=== PATIENT | male | born 1960 | race Two or more races ===

== ENCOUNTER → 2018-12-18 09:04 | Outpatient (CLI) | payer OTHER | END | disposition home or self-care (01) | LOC: D.HCCARDIO 09:00 | PROVIDERS: ATTEND Internal Medicine Cardiovascular Disease | DX: R06.09 Other forms of dyspnea (principal) ==

== ENCOUNTER 2019-01-04 06:41 | Outpatient (CLI) | payer OTHER ==
[~2019-01-04] VITALS: Ht 170.2 cm; Wt 145.9 kg
--- NOTE | ~2019-01-04 | HEMODYNAMI ---
PATIENT:MILDRED ALY MEDICAL RECORD: [id number] : 64 LOCATION:[facility] ADMISSION DATE: 01/04/19 Generatedon:01/04/201910:02 Patient name: MILDRED ALY Patient #: [id number] SSN: : 1960 Date of study: 01/04/2019 Page: Of Hemodynamic Procedure Report Patient Data Patient Demographics Procedure consent was obtained First Name: MILDRED Gender: Male Last Name: SHEEBA : 1960 Patient #: [id number] Age: 58 year(s) Race: Other Additional ID: [id number] Contact details Address: [address] [place] [address] State: [place] City: [facility] Zip code: [address] Admission Admission Data Admission Date: 01/04/2019 Admission Time: 6:41 Lab Results Lab Result Date: 01/04/2019 Lab Result Time: 0:00 Biochemistry Name Units Result Min Max BUN mg/dl 9 --(*---)-- 7 18 Creatinine mg/dl 0.8 --(-*--)-- 0.6 1.3 CBC Name Units Result Min Max Hemoglobin g/dl 17.3 --(---*)-- 13.5 17.5 Procedure Procedure Types Cath Procedure Diagnostic Procedure [facility] w/Coronaries Procedure Description Procedure Date Procedure Date: 01/04/2019 Procedure Start Time: 9:46 Procedure End Time: 10:01 Procedure Staff Name Function You Jackson MD Performing Physician Mimi Godwin RT Monitor Omar Trujillo RT Scrub Trina Fuentes RN Nurse Procedure Data Cath Procedure Fluoroscopy Diagnostic fluoroscopy Total fluoroscopy Time: 3.1 time: 3.1 min min Diagnostic fluoroscopy Total fluoroscopy dose: 956 dose: 956 mGy mGy Contrast Material Contrast Material Type Amount (ml) Isovue 300 77 Entry Location Entry Primary Successful Side Size Upsize Upsize Entry Closure Succes sful Closure Location (Fr) 1 (Fr) 2 (Fr) Remarks Device Remarks Femoral Right 5 Fr Exoseal artery Estimated blood loss: 5 ml Diagnostic catheters Device Type Used For End Catheter Placement MULTIPACK JL 4.0 5Fr Left Coronary catheter Angiography MULTIPACK 3DRC 5Fr Right Coronary catheter Angiography MULTIPACK Pigtail 5 Fr LV Angiography catheter Procedure Complications No complications Procedure Medications Medication Administration Route Dosage 0.9% NaCl I.V. 100 ml/hr Oxygen etCO2 Nasal cannula 2 l/min Lidocaine 2% added to field 20 Heparin Flush Bag added to field 2 bags (1000units/500ml NS) Versed I.V. 2 mg Fentanyl I.V. 50 mcg Oxygen NRB 15 l/min Hemodynamics Rest HGB: 17.3 (g/dl) Heart Rate: 55 (bpm) Pressure Samples Time Site Value (mmHg) Purpose Heart Use Rate(bpm) 9:57 LV 156/32,72 Snapshot 78 Gradients Valve Time Site Site Mean SEP/DFP Peak To Heart Use 1 2 (mmHg) (sec/min) Peak Rate (mmHg) (bpm) Aortic 9:58 LV AO 87 Snapshots Pre Cath Intra NCS Post Cath Vital Signs Time Heart Resp SPO2 etCO2 NIBP (mmHg) Rhythm Pain Sedation Rate (ipm) (%) (mmHg) Status Level (bpm) 9:32:02 72 27 90 47 169/106(130) NSR 0 (11) 10(A) , No pain 9:36:32 69 20 94 46.6 168/107(137) NSR 0 (11) 10(A) , No pain 9:41:03 74 30 90 24 146/100(118) NSR 0 (11) 9(A) , No pain 9:46:28 69 24 91 39.1 155/100(130) NSR 0 (11) 9(A) , No pain 9:50:57 69 20 98 45.8 172/104(124) NSR 0 (11) 9(A) , No pain 9:56:53 76 24 98 43.6 183/101(131) NSR 0 (11) 9(A) , No pain 10:01:30 76 24 98 46.6 184/105(138) NSR 0 (11) 10(A) , No pain Medications Time Medication Route Dose Verified Delivered Reason Notes Effe ctiveness by by 9:31:12 0.9% NaCl I.V. 100 You Trina used for ml/hr Manuel Fuentes company doctor 9:31:19 Oxygen etCO2 2 You Trina used for Nasal l/min Manuel Fuentes procedure cannula RN 9:31:24 Lidocaine 2% added 20ml You You for local to vial Manuel Jackson MD anesthetic field 9:31:29 Heparin Flush added 2 You You used for Bag to bags Manuel Jackson MD procedure (1000units/500ml field NS) 9:37:02 Versed I.V. 2 mg You Trina for Manuel Fuentes sedation RN 9:37:07 Fentanyl I.V. 50 You Trina for mcg Manuel Fuentes sedation RN 9:49:37 Oxygen NRB 15 You Trina used for l/min Manuel Fuentes company doctor Procedure Log Time Note 8:54:53 Informed consent obtained and on chart 8:59:49 Lab Result : Hemoglobin 17.3 g/dl 8:59:49 Lab Result : Creatinine 0.8 mg/dl 8:59:49 Lab Result : BUN 9 mg/dl 9:28:29 Diagnostic Cath status Elective 9:28:30 Mimi Godwin RT(R) sent for patient. Start room use. 9:28:32 Time tracking: Regular hours (M-F 7:00 - 5:00) 9:28:37 Plan of Care:Hemodynamics will remain stable., Cardiac rhythm will remain stable., Comfort level will be maintained., Respiratory function will remain adequate., Patient/ family verbilizes understanding of procedure., Procedure tolerated without complication., Recovers from procedure without complications.. 9:28:42 Patient received from Pre/Post Procedure Room to CCL 1 Alert and oriented. Tansferred to table in Supine position. 9:28:44 Warm blankets applied, and lizandro hugger turned on for patient comfort. 9:28:44 Correct patient and procedure confirmed by team. 9:28:45 ECG and BP/O2 sat monitors applied to patient. 9:28:45 Vital chart was started 9:28:47 Baseline sample Acquired. 9:28:49 Rhythm: sinus rhythm 9:28:51 Full Disclosure recording started 9:31:12 0.9% NaCl 100 ml/hr I.V. was administered by Trina Fuentes RN; used for procedure; 9:31:19 Oxygen 2 l/min etCO2 Nasal cannula was administered by Trina Fuentes RN; used for procedure; 9:31:24 Lidocaine 2% 20ml vial added to field was administered by You Jackson MD; for local anesthetic; 9:31:29 Heparin Flush Bag (1000units/500ml NS) 2 bags added to field was administered by You Jackson MD; used for procedure; 9:34:11 Baseline sample Acquired. 9:34:20 H&P Date Dictated: 01/04/2019 Within 30 days and on chart., H&P Addendum completed by physician on day of procedure. (MUST COMPLETE FOR ALL OUTPATIENTS). 9:34:21 Pre-procedure instructions explained to patient. 9:34:22 Pre-op teaching completed and patient verbalized understanding. 9:34:23 Family in waiting room. 9:34:24 Patient NPO since Midnight. 9:34:26 Is the patient allergic to Iodine/contrast media? No. 9:34:27 Was the patient premedicated? No 9:34:28 Is patient on blood thinner?No 9:34:37 Patient diabetic? No. 9:34:40 Previous problem with sedation/anesthesia? No ? 9:34:44 Snore? Yes 9:34:44 Sleep apnea? Yes 9:34:45 Deviated septum? No 9:34:47 Opens mouth fully? Yes 9:34:48 Sticks out tongue? Yes 9:34:55 Airway obstruction? No ? 9:34:59 Dentures? No ? 9:35:04 Pre procedure: right dorsailis pedis pulse 2+ Normal; easily identifiable; not easily obliterated 9:35:06 Pre procedure: left dorsailis pedis pulse 2+ Normal; easily identifiable; not easily obliterated 9:35:08 Patient pain scale 0/10 ?. 9:35:18 IV patent on arrival in left forearm with 0.9% NaCl at [facility]. 9:35:20 Lab results completed and on chart. 9:35:24 Right groin area was prepped with chlora-prep and draped in sterile fashion 9:35:25 Alarms reviewed by R. N. 9:35:26 Sharps counted by scrub and verified by R.N. 9:35:30 Physician arrived 9:35:31 --------ALL STOP TIME OUT------ 9:35:33 Right groin site verified by team. 9:35:36 Maximum allowable Isovue 300 dose 300ml. Physician notified. (300ml for normal creatinines. For patients with creatinine of 1.7 or higher multiply weight(kg) x 5 divided by creatinine.) 9:35:41 Fire Safety Assessment: A--An alcohol-based skin anteseptic being used preoperatively., C--Open oxygen or nitrous oxide is being used., D--An ESU, laser, or fiber-optic light is being used. 9:35:45 Physical assessment completed. ASA score P 2 - A patient with mild systemic disease as per You Jackson MD. 9:35:48 Sedation plan: IV Moderate Sedation Medication:Versed, Fentanyl 9:35:52 Pt arrived to CL 88% SpO2 on RA. Simple mask applied at 6L. 9:37:02 Versed 2 mg I.V. was administered by Trina Fuentes RN; for sedation; 9:37:07 Fentanyl 50 mcg I.V. was administered by Trina Fuentes RN; for sedation; 9:38:41 Use device set Femoral Dx 9:38:42 ACIST Syringe (12609) opened to sterile field. 9:38:43 Bag Decanter (2002S) opened to sterile field. 9:38:43 Medline Cath Pack ([id number]) opened to sterile field. 9:38:44 DIAGNOSTIC WIRE .035 260cm J wire (531014) opened to sterile field. 9:38:45 ACIST Hand Control (41500) opened to sterile field. 9:38:45 ACIST Manifold (85312) opened to sterile field. 9:38:46 DIAGNOSTIC Multipack 5Fr catheter set ([id number]) opened to sterile field. 9:38:46 Tegaderm 4 x 4 (1626W) opened to sterile field. 9:38:47 SHEATH 5FR [place] (IUY698) opened to sterile field. 9:43:49 Procedure started. 9:46:09 Local anesthetic to right femoral artery with Lidocaine 2% by You Jackson MD.INITIAL ACCESS ONLY 9:49:37 Oxygen 15 l/min NRB was administered by Trina Fuentes RN; used for procedure; 9:51:28 A 5 Fr sheath was inserted into the Right Femoral artery 9:51:58 A MULTIPACK JL 4.0 5Fr catheter was advanced over the wire and used for Left Coronary Angiography. 9:52:24 LCA angiography performed. 9:52:27 Injector settings: Ml/sec: 3, Volume: 6, 9:53:33 Catheter removed. 9:53:40 A MULTIPACK 3DRC 5Fr catheter was advanced over the wire and used for Right Coronary Angiography. 9:54:54 RCA angiography performed. 9:54:58 Injector settings: Ml/sec: 3, Volume: 6, 9:55:19 Catheter removed. 9:55:27 A MULTIPACK Pigtail 5 Fr catheter was advanced over the wire and used for LV Angiography. 9:57:49 LV hemodynamics recorded. 9:57:50 LV gram done using CAMPBELL 9:57:53 Injector settings: Ml/sec: 5, Volume: 15, 9:58:11 EF : 55 % 9:58:35 Catheter removed. 9:58:47 EXOSEAL 5Fr (EX500) opened to sterile field. 9:59:13 Sheath removed intact; hemostasis achieved with Exoseal to the Right Femoral artery. 9:59:16 Procedure ended.(Physican Out) 9:59:39 Fluoroscopy time 03.10 minutes. 9:59:44 Fluoroscopy dose: 956 mGy 9:59:44 Flurop Dose total: 956 10:00:12 Contrast amount:Isovue 300 77ml. 10:00:14 Sharps counted by scrub and verified by R.N. 10:00:22 Insertion/operative site no bleeding no hematoma. 10:00:38 Post right femoral artery:stable 10:00:40 Post Procedure Pulses reassessed and unchanged 10:00:43 Post procedure rhythm: unchanged. 10:00:46 Estimated blood loss: 5 ml 10:00:48 Post procedure instruction explained to patient.Patient verbalizes understanding. 10:00:48 Patient needs reinforcement of post procedure teaching. 10:00:56 Procedure and supply charges have been captured, reviewed, submitted and are correct. 10:01:02 Procedure Complication : No complications 10:01:05 Vital chart was stopped 10:01:05 See physician's report for complete and final results. 10:01:51 Report given to Pre/Post Procedure Room. 10:01:55 Patient transfered to Pre/Post Procedure Room with Stretcher. 10:01:59 Procedure ended. 10:01:59 Full Disclosure recording stopped 10:02:04 End room use (Document Last) Device Usage Item Name Manufacture Quantity Catalog Hospital Part Current Minimal L ot# / Number Charge Number Stock Stock Serial# Code ACIST Acist 1 95136 301456 341612 509680 20 Syringe Medical (42724) Systems Inc Bag Microtek 1 2001S 639132 71119 355221 5 Decanter Medical Inc. () Medline Medline 1 [id number] 009367 71574 090971 5 Cath Pack ([id number]) DIAGNOSTIC St Mikel 1 089780 262283 666787 391394 30 WIRE .035 260cm J wire (558508) ACIST Hand Acist 1 58648 853255 887149 198442 5 Control Medical (88701) Systems Inc ACIST Acist 1 51295 616827 896013 506738 5 Manifold Medical (28854) Systems Inc DIAGNOSTIC Cardinal 1 AW0670 640498 27816 332757 30 Multipack Health 5Fr catheter set (AR8611) Tegaderm 4 3M 1 1626W 872166 034543 902614 5 x 4 (1626W) SHEATH 5FR Terumo 1 [id number] 587287 829888 065664 5 [place] (YDI857) MULTIPACK Cardinal 1 009383 5 JL 4.0 5Fr Health catheter MULTIPACK Cardinal 1 217308 5 3DRC 5Fr Health catheter MULTIPACK Cardinal 1 185634 5 Pigtail 5 Health Fr catheter EXOSEAL 5Fr Cardinal 1 EX500 782154 839295 946149 10 (EX500) Health Signature Audit [place] Stage Time Signature Unsigned Intra-Procedure 01/04/2019 Mimi Godwin 10:02:49 AM RT(R) Signatures Monitor : Mimi Godwin RT Signature : Date : Time : [facility] [address] [place] [address]
[2019-01-04] MEDS ORDERED: LISINOPRIL10 MG PO (07:45)
[2019-01-04] MEDS ORDERED: HYDROCHLOROTH12.5 M1 PO (07:45)
[2019-01-04] MEDS ORDERED: ALBUTEROL SULF8.5 GM INH (07:46)
[2019-01-04 07:51] VITALS: BP 161/103; Ht 170.2 cm; Wt 145.9 kg
[2019-01-04 07:57] LABS: BASOPHILS 0.4 % (0-2); EOSINOPHILS 5.7 % (0-7); HEMATOCRIT 52.4 % (42.0-54.0); HEMOGLOBIN 17.3 g/dL (13.5-17.5); IMMATURE GRANULOCYTES 0.7 % (0-5); MCH 30.9 pg (26.0-34.0); MCV 93.7 fL (80.0-100.0); MEAN PLATELET VOLUME 10.8 fL (7.4-10.4); MONOCYTES 7.6 % (2-11); NEUTROPHILS 66.6 % (40-80); PLATELET COUNT 224 10x3/uL (130-400); RBC 5.59 10x6/uL (4.20-6.10); WBC 10.2 10x3/uL (4.8-10.8)
[2019-01-04 08:22] LABS: CALC OSMOLALITY 277 mosm/kg (275-300); CALCIUM 8.2 mg/dL (8.5-10.1); CHLORIDE - SERUM 103 mmol/L (98-107); CREATININE - SERUM 0.8 mg/dL (0.6-1.3); GLUCOSE 105 mg/dL (74-106); POTASSIUM - SERUM 4.1 mmol/L (3.5-5.1); SODIUM 140 mmol/L (136-145); UREA NITROGEN 9 mg/dL (7-18); eGFR NON AFRICAN AMERICAN > 90 mL/min (90-120)
--- NOTE | 2019-01-04 10:19 | NUR ---
RECIEVED TO ROOM VIA STRETCHER FROM REHABILITATION CLERK WITH 5 FR EXOSEAL R/GROIN CDI NO BLEEDING OR HEMATOMA NOTED. PATIENT IS ON NON REBREATHE WITH O2 AT 10 BP 156/94 HR 66 CHEST PAIN IS DENIED. FAMILY PRESENT AT BEDSIDE
--- NOTE | 2019-01-04 10:35 | NUR ---
PATIENT RESPONDS TO VERBAL WITH CHEST PAIN DENIED. TOLERATING SIPS OF WATER WITH NO DISTRESS. NON REBREATHER REAMINS IN USE WITH O2 SAT OF 98. 5 FR EXOSEAL R/GROIN IS CDI
--- NOTE | 2019-01-04 10:49 | NUR ---
5 FR EXOSEAL R/GROIN IS CDI WITH R/FOOT WARM TO TOUCH. NO DISTRESS NOTED.FAMILY IS PRESENT IN ROOM WITH NEEDS DENIED
--- NOTE | 2019-01-04 11:00 | NUR ---
DR QUIGLEY AT BEDSIDE TALKING TO PATIENT AND FAMILY
--- NOTE | 2019-01-04 11:19 | NUR ---
PATIENT ALERT AND ORIENTED WITH OXYGEN CHANGED OVER TO NASAL AT 2 LITERS. SAT OF 94 WITH CHEST PAIN DENIED. 5 FR EXOSEAL R/GROIN IS CDI
--- NOTE | 2019-01-04 11:38 | NUR ---
REPOSITIONED TO HOB UP 30 FOR COMFORT. 5 FR EXOSEAL R/GROIN IS CDI WITH NO DISTRESS NOTED SANDWICH AND SODA TO BEDSIDE
--- NOTE | 2019-01-04 12:07 | NUR ---
VERBAL AND WRITTEN DISCHARGE GONE OVER WITH PATIENT AND FAMILY. R/GROIN IS CDI WITH CHEST PAIN DENIED. PIV REMOVED WITH DRESSING APPLIED. PATIENT UP TO GET DRESSED FOR DISCHARGE HOME NO DISTRESS NOTED
--- NOTE | 2019-01-04 12:17 | NUR ---
PATIENT LEFT VIA WC TO PARKING FOR PRIVATE TRANSPORT HOME WITH FAMILY. CHEST PAIN IS DENIED AND R/GROIN IS CDI
== END 2019-01-04 12:18 | disposition home or self-care (01) ==
LOC: D.CATH 06:41
PROVIDERS: ATTEND Internal Medicine Cardiovascular Disease
DX: I20.9 Angina pectoris, unspecified (principal); Z01.812 Encounter for preprocedural laboratory examination